=== PATIENT | male | born 1990 | race African-American/Black ===

== ENCOUNTER 2018-06-21 17:43 | Emergency (ER) | payer OTHER ==
[~2018-06-21] VITALS: Ht 188 cm; Wt 79.4 kg
[2018-06-21 18:39] VITALS: BP 111/65
== END 2018-06-21 18:40 | disposition home or self-care (01) ==
LOC: M.ERS 17:43
DX: S00.83XA Contusion of other part of head, initial encounter (principal); F17.210 Nicotine dependence, cigarettes, uncomplicated; Z88.0 Allergy status to penicillin; W22.8XXA Striking against or struck by other objects, initial encounter; Y93.89 Activity, other specified; Y92.89 Other specified places as the place of occurrence of the external cause; Y99.8 Other external cause status